=== PATIENT | female | born 1965 | race Caucasian/White ===

== ENCOUNTER → 2018-12-25 07:36 | Outpatient (CLI) | payer MEDICARE, MEDICAID | END | disposition home or self-care (01) | LOC: D.MRI 07:36 | PROVIDERS: ATTEND Anesthesiology | DX: M54.16 Radiculopathy, lumbar region (principal) ==

== ENCOUNTER 2019-12-11 22:45 | Inpatient (IN) | payer MEDICARE ==
[~2019-12-11] VITALS: Ht 167.6 cm; Wt 110.5 kg
[2019-12-11] MEDS ORDERED: LEXAPRO20 MG PO (22:50)
[2019-12-11] MEDS ORDERED: FUROSEMIDE40 MG PO (22:50)
[2019-12-11] MEDS ORDERED: PROTONIX20 MG PO (22:51)
[2019-12-11] MEDS ORDERED: PRAVACHOL20 MG PO (22:51)
[2019-12-11] MEDS ORDERED: NITROSTAT0.4 MG SL (22:51)
[2019-12-11] MEDS ORDERED: ALDACTONE100 MG PO (22:51)
[2019-12-11 23:00] LABS: BASOPHILS 0.6 % (0-2); EOSINOPHILS 3.2 % (0-7); HEMATOCRIT 29.7 % (36.0-48.0); HEMOGLOBIN 9.1 g/dL (12-16); LYMPHOCYTES 46.2 % (15-50); MCH 26.1 pg (26.0-34.0); MCHC 30.6 g/dL (31.0-37.0); MCV 85.3 fL (80.0-100.0); MEAN PLATELET VOLUME 10.3 fL (7.4-10.4); RBC 3.48 10x6/uL (4.00-5.40); RDW 18.8 % (11.5-14.5)
[2019-12-11 23:04] LABS: PLATELET COUNT 71 10x3/uL (130-400)
[2019-12-11 23:09] VITALS: BP 110/49
[2019-12-11 23:09] LABS: CALC OSMOLALITY 279 mosm/kg (275-300); CALCIUM 8.1 mg/dL (8.5-10.1); CHLORIDE - SERUM 109 mmol/L (98-107); GLUCOSE 118 mg/dL (74-106); POTASSIUM - SERUM 4.5 mmol/L (3.5-5.1); SODIUM 141 mmol/L (136-145); UREA NITROGEN 6 mg/dL (7-18); eGFR NON AFRICAN AMERICAN 61 mL/min (90-120)
--- NOTE | 2019-12-11 23:09 | NUR ---
RT HERE AT BEDSIDE OXYGEN INCREASED TO 4/L
[2019-12-11 23:11] LABS: APTT 46.3 SECONDS (22.8-39.4); INR 1.44 (0.85-1.17); PROTIME 17.4 SECONDS (11.6-15.0)
[2019-12-11 23:23] LABS: ALKALINE PHOSPHATASE 63 U/L (30-120); ALT (SGPT) 17 U/L (10-68); BILIRUBIN - TOTAL 0.83 mg/dL (0.2-1.3); CKMB 0.1 U/L (0.0-3.6); CREATINE KINASE 43 UL (21-215); PRO BNP 842 pg/mL (0-125); PROTEIN - SERUM 8.1 g/dL (6.4-8.2)
[2019-12-11 23:24] LABS: TROPONIN-I < 0.017 ng/mL (0.000-0.060)
[2019-12-11 23:34] LABS: PLATELET ESTIMATE DECREASED; PLATELET MORPHOLOGY GIANT PLTS PRESENT
[2019-12-11 23:37] LABS: D-DIMER-QUANTITATIVE 8.82 ug/mLFEU (0.20-0.54)
[2019-12-12] VITALS (8 sets, daily range): BP systolic 99–115; BP diastolic 47–67; Ht 167.6 cm; Wt 110.5 kg
[2019-12-12] MEDS ORDERED: NADOLOL20 MG (02:57)
[2019-12-12] MEDS ORDERED: VITAMIN D10000 UNI1 (02:59)
--- NOTE | 2019-12-12 03:00 | NUR ---
RECEIVED FROM ER, A&OX4, MEDS AND HISTORY COMPLETE, ON BIPAP, BED IS LOW, SRX2, CALL LIGHT IN REACH, WILL CONTINUE PLAN OF CARE
--- NOTE | 2019-12-12 07:00 | NUR ---
RECEIVED REPORT. ASSUMED CARE OF PATIENT. CALL LIGHT WITHIN REACH. PATIENT RESTING ON LEFT LATERAL SIDE WITH EYES CLOSED, BIPAP PATENT. PATIENT IS SINUS DULCE ON TELEMETRY, RATE 58. NO DISTRESS.
--- NOTE | 2019-12-12 09:30 | NUR ---
SITTING UP IN BED, BIPAP PATENT. FRESH ICE WATER PROVIDED. DENIES NEEDS. NO DISTRESS.
--- NOTE | 2019-12-12 11:20 | NUR ---
RESTING PEACEFULLY, EASILY AROUSED. PATIENT WONDERING WHEN SHE WILL GO HOME TODAY. THIS STOCK DRIVER HAS NO INFORMATION REGARDING DISCHARGE AT THIS TIME. NO DISTRESS. CALL LIGHT WITHIN REACH.
[2019-12-12 14:31] LABS: % SATURATION 14 % (15-55); IRON 37 ug/dl (35-150); TOTAL IRON BIND CAPACITY 264 ug/dl (260-445); UNSAT IRON BIND CAPACITY 227 ug/dl (150-375)
[2019-12-12 14:56] LABS: CREATINE KINASE 47 UL (21-215); FERRITIN 50 ng/mL (3-244)
[2019-12-12 15:04] LABS: TROPONIN-I < 0.017 ng/mL (0.000-0.060)
--- NOTE | 2019-12-12 15:30 | NUR ---
PATIENT RESTING IN BED. NO DISTRESS. PATIENT CONTINUES TO ASK ABOUT DISCHARGING TO HOME. WAITING FOR MD ROUNDS AT THIS TIME.
--- NOTE | 2019-12-12 17:47 | NUR ---
RESTING IN BED. NO DISTRESS. CALL LIGHT WITHIN REACH.
--- NOTE | 2019-12-12 19:26 | NUR ---
RECEIVED REPORT, WILL ASSUME CARE OF PT, UP IN RESTROOM, DENIES ANY NEEDS, WILL CONTINUE PLAN OF CARE
[2019-12-12 20:24] LABS: CREATINE KINASE 44 UL (21-215)
[2019-12-12 20:25] LABS: TROPONIN-I < 0.017 ng/mL (0.000-0.060)
[2019-12-13] VITALS: BP 110/56
--- NOTE | 2019-12-13 01:43 | NUR ---
I have reviewed this patient and I concur with the Shift Assessment completed by the Licensed Practical Nurse today this shift.
[2019-12-13 02:39] LABS: BASOPHILS 0.1 % (0-2); EOSINOPHILS 0 % (0-7); HEMATOCRIT 27.6 % (36.0-48.0); HEMOGLOBIN 8.7 g/dL (12-16); IMMATURE GRANULOCYTES 0.2 % (0-5); LYMPHOCYTES 11.1 % (15-50); MCH 26.3 pg (26.0-34.0); MCHC 31.5 g/dL (31.0-37.0); MCV 83.4 fL (80.0-100.0); MEAN PLATELET VOLUME 10.7 fL (7.4-10.4); MONOCYTES 2.5 % (2-11); NEUTROPHILS 86.1 % (40-80); PLATELET COUNT 80 10x3/uL (130-400); RBC 3.31 10x6/uL (4.00-5.40); RDW 18.6 % (11.5-14.5)
[2019-12-13 02:42] LABS: WBC 12.7 10x3/uL (4.8-10.8)
[2019-12-13 03:05] LABS: ALKALINE PHOSPHATASE 55 U/L (30-120); ALT (SGPT) 15 U/L (10-68); BILIRUBIN - TOTAL 0.83 mg/dL (0.2-1.3); CALC OSMOLALITY 270 mosm/kg (275-300); CALCIUM 7.7 mg/dL (8.5-10.1); CARBON DIOXIDE 24.2 mmol/L (21.0-32.0); CHLORIDE - SERUM 102 mmol/L (98-107); CKMB 0.3 U/L (0.0-3.6); CREATINE KINASE 37 UL (21-215); GLUCOSE 169 mg/dL (74-106); POTASSIUM - SERUM 4.1 mmol/L (3.5-5.1); PROTEIN - SERUM 7.8 g/dL (6.4-8.2); SODIUM 132 mmol/L (136-145); TROPONIN-I < 0.017 ng/mL (0.000-0.060); UREA NITROGEN 17 mg/dL (7-18); eGFR NON AFRICAN AMERICAN 61 mL/min (90-120)
[2019-12-13 04:00] VITALS: BP 110/56
--- NOTE | 2019-12-13 07:00 | NUR ---
RECEIVED REPORT. ASSUMED CARE OF PATIENT. CALL LIGHT WITHIN REACH. PATIENT RESTING IN BED WITH EYES CLOSED. RESP EVEN AND UNLABORED. NO BIPAP AT THIS TIME. NO DISTRESS. SINUS DULCE ON TELEMETRY.
[2019-12-13 10:56] VITALS: BP 106/60
--- NOTE | 2019-12-13 12:00 | NUR ---
RESTING IN BED. NO DISTRESS. CONSUMING NOON MEAL. CALL LIGHT WITHIN REACH.
[2019-12-13 14:31] VITALS: BP 108/50
--- NOTE | 2019-12-13 14:31 | NUR ---
ICE CREAM PROVIDED UPON REQUEST (MERY CANDELARIO). NO DISTRESS. LYING IN BED WITH ATTENTION TOWARD TELEVISION.
--- NOTE | 2019-12-13 15:30 | NUR ---
PATIENT OOB AMBULATING IN ROOM. NO DISTRESS. CALL LIGHT WITHIN REACH.
--- NOTE | 2019-12-13 17:26 | NUR ---
RESTING IN BED. NO DISTRESS. CALL LIGHT WITHIN REACH.
[2019-12-13 18:37] VITALS: BP 113/52
--- NOTE | 2019-12-13 19:15 | NUR ---
RECEIVED REPORT, WILL ASSUME CARE OF PT, PT IS IN SHOWER, WILL CONTINUE PLAN OF CARE
[2019-12-13 20:00] VITALS: BP 104/70
[2019-12-14] VITALS: BP 130/59
[2019-12-14 04:00] VITALS: BP 107/55
--- NOTE | 2019-12-14 04:00 | NUR ---
I have reviewed this patient and I concur with the Shift Assessment completed by the Licensed Practical Nurse today this shift.
[2019-12-14 06:24] LABS: ANION GAP 9.3 mmol/L (8-16); CALCIUM 7.8 mg/dL (8.5-10.1); CARBON DIOXIDE 23.9 mmol/L (21.0-32.0); POTASSIUM - SERUM 4.2 mmol/L (3.5-5.1)
[2019-12-14 07:22] LABS: HEMATOCRIT 27.7 % (36.0-48.0); HEMOGLOBIN 8.8 g/dL (12-16); MCH 26.1 pg (26.0-34.0); MCHC 31.8 g/dL (31.0-37.0); MCV 82.2 fL (80.0-100.0); RBC 3.37 10x6/uL (4.00-5.40); RDW 18.2 % (11.5-14.5); WBC 11.7 10x3/uL (4.8-10.8)
[2019-12-14 07:25] LABS: PLATELET COUNT 100 10x3/uL (130-400)
[2019-12-14 08:43] VITALS: BP 112/43
[2019-12-14 11:03] LABS: LYMPHOCYTES 10 % (15-50); MONOCYTES 6 % (2-11); NEUTROPHILS 84 % (40-80); PLATELET ESTIMATE DECREASED
[2019-12-14 11:04] LABS: ANISOCYTOSIS OCC
[2019-12-14 12:16] VITALS: BP 108/50
--- NOTE | 2019-12-14 12:53 | NUR ---
PT AMBULATING IN HALLS BY SELF WITHOUT OXYGEN. PULSE OX ON RETURN TO ROOM 97%. LEFT ON ROOM AIR FOR NOW.
[2019-12-14 15:35] LABS: BILIRUBIN NEGATIVE (NEGATIVE); GLUCOSE NEGATIVE (NEGATIVE); KETONE NEGATIVE (NEGATIVE); NITRITE NEGATIVE (NEGATIVE); UROBILINOGEN NORMAL (NORMAL)
[2019-12-14 15:39] LABS: BACTERIA FEW /hpf (NEGATIVE); EPITHELIAL CELLS 0-5 /hpf (0-5); RED CELLS - URINE OCC /hpf (0-5); WHITE CELLS - URINE 0-5 /hpf (NEGATIVE)
[2019-12-14 15:47] VITALS: BP 100/55
--- NOTE | 2019-12-14 19:33 | NUR ---
DENIES NEEDS AT THIS TIME BED LOW AND LOCKED CALL LIGHT IS WITH PT
--- NOTE | 2019-12-14 20:29 | NUR ---
PT UP AMBULATING AROUND UNIT AND TOLERATING WELL NEEDS SEEN TO
[2019-12-14 20:34] VITALS: BP 103/47
[2019-12-15 00:31] VITALS: BP 105/51
[2019-12-15 05:19] VITALS: BP 121/49
[2019-12-15 06:14] LABS: CARBON DIOXIDE 26.3 mmol/L (21.0-32.0); POTASSIUM - SERUM 4.3 mmol/L (3.5-5.1)
[2019-12-15 06:20] LABS: BASOPHILS 0.1 % (0-2); EOSINOPHILS 0 % (0-7); HEMATOCRIT 28.4 % (36.0-48.0); HEMOGLOBIN 8.9 g/dL (12-16); IMMATURE GRANULOCYTES 0.4 % (0-5); LYMPHOCYTES 13.8 % (15-50); MCH 25.8 pg (26.0-34.0); MCHC 31.3 g/dL (31.0-37.0); MCV 82.3 fL (80.0-100.0); MONOCYTES 3.5 % (2-11); NEUTROPHILS 82.2 % (40-80); PLATELET COUNT 91 10x3/uL (130-400); RBC 3.45 10x6/uL (4.00-5.40); RDW 18.5 % (11.5-14.5)
--- NOTE | 2019-12-15 07:00 | NUR ---
RECEIVED REPORT. ASSUMED CARE OF PATIENT. CALL LIGHT WITHIN REACH. PATIENT SITTING UP IN BED. DENIES NEEDS. PATIENT IS FOR POSSIBLE DISCHARGE TODAY. RESP EVEN AND UNLABORED ON ROOM AIR. NO DISTRESS.
[2019-12-15 10:15] VITALS: BP 112/59
--- NOTE | 2019-12-15 11:22 | NUR ---
PATIENT SITTING UP TO SIDE OF BED. PATIENT HAS BEEN AMBULATING IN HALLWAY FREQUENTLY THIS AM. NO DISTRESS.
[2019-12-15] MEDS ORDERED: PREDNISONE10 MG PO (13:13)
[2019-12-15 14:24] VITALS: BP 116/59
--- NOTE | 2019-12-15 14:52 | NUR ---
20 GAUGE IV REMOVED FROM LEFT FOREARM. CATHETER TIP IMTACT. NO BLEEDING FROM SITE. 2X2 GAUZE APPLIED AND SECURED WITH BANDAID. TOLERATED IV REMOVAL WELL. PATIENT IS DISCHARGING TO HOME.
--- NOTE | 2019-12-15 15:00 | NUR ---
DISCHARGE INSTRUCTIONS PROVIDED TO PATIENT. PATIENT VERBALIZED UNDERSTANDING OF ALL INSTRUCTIONS PROVIDED. PATIENT SISTER AT BEDSIDE DURING DISCHARGE INSTRUCTIONS BEING PROVIDED. PATIENT IS DISCHARGING TO HOME WITH HER SISTER.
--- NOTE | 2019-12-15 15:15 | NUR ---
PATIENT LEFT UNIT WITH WHEELCHAIR AT THIS TIME WITH ALL PERSONAL BELONGINGS. PATIENT DISCHARGED TO HOME IN NO DISTRESS. TELEMETRY UNIT RETURNED TO PROJECT SCHEDULER. PATIENT THANKED THIS HARVEST SUPERVISOR FOR BEING SUCH A GOOD NURSE TO HER.
--- NOTE | 2019-12-15 17:51 | MORECARE ---
CASE MANAGEMENT DISCHARGE SUMMARY PATIENT: GIANNA EMERSON UNIT: [id number] ADM DATE: 12/12/19 AGE: 53 : 65 SEX: F ROOM/BED: D.2134 AUTHOR: DANIEL MCKAY PHYSICIAN: REFERRING PHYSICIAN: SHAMEKA LAUREANO MD DATE OF SERVICE: 12/15/19 Discharge Plan Patient Name: GIANNA EMERSON Facility: [facility]:[place] : 1965 Planned Disposition: Home Anticipated Discharge Date: 12/15/19 Discharge Date: 12/15/2019 Expected LOS: 3 Initial Reviewer: [email or web address] Initial Review Date: 12/15/2019 Generated: 12/15/19 6:51 pm Coverage Notice Reviewer: [email or web address] - John Glass Notice Issued Date-Time: 12/15/2019 14:57 Notice Type: IM Discharge Notice Notice Delivered To: Patient Relationship to Patient: Denture Model Maker Name: Delivery Method: HAND - Hand Delivered Allison Days: Prior Verbal Notification: Recipient Understood Notice: Yes Recipient Signature: Yes Med Rec Note Co-signed by Attending: Coverage Notice Comment: Patient Name: GIANNA EMERSON Page [phone] at 1751 All edits/amendments must be made on the electronic document DICTATION DATE: 12/15/191750 CAREER COACH: JANAE 12/15/191750 RPT#: [id number] DC DATE:12/15/19 STATUS: DIS IN [facility] [address] [place] [address] END OF REPORT
--- NOTE | 2019-12-15 18:00 | MORECARE ---
CASE MANAGEMENT DISCHARGE SUMMARY PATIENT: GIANNA EMERSON UNIT: [id number] ADM DATE: 12/12/19 AGE: 53 : 65 SEX: F ROOM/BED: D.8292 AUTHOR: NELY,DOC PHYSICIAN: REFERRING PHYSICIAN: SHAMEKA LAUREANO MD DATE OF SERVICE: 12/15/19 Discharge Plan Patient Name: GIANNA EMERSON Facility: [facility]:[place] : 1965 Planned Disposition: Home Anticipated Discharge Date: 12/15/19 Discharge Date: 12/15/2019 Expected LOS: 3 Initial Reviewer: [email or web address] Initial Review Date: 12/15/2019 Generated: 12/15/19 6:59 pm Comments DCP- Discharge Planning Updated by [email or web address]: John Glass on 12/15/19 4:[address] Patient Name: GIANNA EMERSON Admission Status: ER Accout number: [id number] Admission Date: 12-12-2019 : 1965 Admission Diagnosis: Attending: SHAMEKA LAUREANO Current LOS: 3 Anticipated DC Date: 12-15-2019 Planned Disposition: Home Primary Insurance: [facility] [employer] Discharge Planning Comments: CM MET WITH PT IN ROOM TO DISCUSS DISCHARGE PLANNING AND NEEDS. PT REPORTS LIVING AT HOME INDEPENDENTLY AND ALONE. PT HAS CPAP FROM [facility]. PT HAS NO OUTSIDE SERVICES ASSISTING IN THE HOME. CM DISCUSSED AVAILABILITY OF HOME HEALTH, REHAB SERVICES AND MEDICAL EQUIPMENT. PT DENIES DISCHARGE NEEDS, REPORTS HER SISTER WILL PICK HER UP FOR DISCHARGE HOME. IMPORTANT MESSAGE FROM MEDICARE PROVIDED AND EXPLAINED. Sales Training Representative: John Glass DCPIA - Discharge Planning Initial Assessment Updated by [email or web address]: John Glass on 12/15/19 5:51 pm * Is the patient Alert and Oriented? Yes * How many steps to enter\exit or inside your home? * PCP DR. JAQUELIN PATEL, [facility] * Pharmacy [facility] IN [place] * Preadmission Environment Home Alone * ADLs Independent * Equipment CPAP * Other Equipment [facility]- PROVIDER * List name and contact numbers for known caregivers / representatives who currently or will assist patient after discharge: RAVEN EMERSON, SON, * Verbal permission to speak to the caregivers and representatives has been obtained from the patient. N/A * Community resources currently utilized None * Please name any agencies selected above. NONE * Additional services required to return to the preadmission environment? No * Can the patient safely return to the preadmission environment? Yes * Has this patient been hospitalized within the prior 30 days at any hospital? No Coverage Notice Reviewer: [id number] Higinio Glass Notice Issued Date-Time: 12/15/2019 14:57 Notice Type: IM Discharge Notice Notice Delivered To: Patient Relationship to Patient: Hand Molder Name: Delivery Method: HAND - Hand Delivered Allison Days: Prior Verbal Notification: Recipient Understood Notice: Yes Recipient Signature: Yes Med Rec Note Co-signed by Attending: Coverage Notice Comment: Last DP export: 12/15/19 4:51 pm Patient Name: GIANNA EMERSON Page [phone] at 1800 All edits/amendments must be made on the electronic document DICTATION DATE: 12/15/191758 PHOTOGRAPHIC PROCESSOR: JANAE 12/15/191758 RPT#: [id number] DC DATE:12/15/19 STATUS: DIS IN [address] [place] [address] END OF REPORT
--- NOTE | 2019-12-16 08:19 | CN ---
PATIENT NAME:GIANNA EMERSON MEDICAL RECORD: [id number] : [birth year] LOCATION:D. D.2134 ADMIT DATE: 12/12/19 ACCOUNT: [id number] CONSULTING PHYSICIAN: NADIYA JOAQUIN MD REFERRING PHYSICIAN: SHAMEKA LAUREANO MD DATE OF CONSULTATION: 12/13/2019 HISTORY OF PRESENT ILLNESS: A 53-year-old female with a known history of coronary artery disease, status post coronary bypass grafting. More recently, she [facility], had apparently a 70% lesion. She says she has been told in the past that she has congestive heart failure or the same token. She says her heart's strength has been reported as normal before, has a history of JOHNS, probable obstructive pulmonary disease, admitted with shortness of breath, brief chest pain that resolved spontaneously after a few seconds. She reports being treated for varices at [facility] with a prolonged stay at that time at their facility as well as a recent admission to [facility] with influenza. We are asked to see her concerning her cardiovascular status. PAST MEDICAL HISTORY: Includes: 1. History of JOHNS. 2. Coronary artery disease as described above. 3. Dyslipidemia. 4. Congestive heart failure. 5. Obstructive sleep apnea. MEDICATIONS: On admission include pravastatin 20 mg p.o. every day, Aldactone 100 mg p.o. daily, nadolol 10 mg p.o. daily, Lexapro 20 mg every day, Lasix 40 every day. SOCIAL HISTORY: Quit smoking recently. Nondrinker. No set exercise program. Able to take care of all her ADLs. ALLERGIES: INCLUDE WELLBUTRIN, CODEINE AND MORPHINE. REVIEW OF SYSTEMS: The patient reports easy bruising but reports no swollen glands. The patient reports no fever, no night sweats, no significant weight gain, no significant weight loss. No significant exercise tolerance. The patient reports no dry eyes, no irritation, no vision change. Patient reports no difficulty hearing and no ear pain. Patient reports no frequent nose bleeds or nose and sinus problems. Patient reports on arm pain on exertion. No shortness of breath while lying down. No history of heart murmur. Patient reports no cough, no wheezing or coughing up blood. Patient reports no abdominal pain, no vomiting. Normal appetite. No diarrhea and not vomiting blood. No nausea and no constipation. Patient reports no incontinence. No difficulty urinating. No hematuria. No increased frequency. Patient reports no muscle aches. No weakness, no arthralgias, no back pain. No swelling of the extremities. Patient reports no abnormal mole, no jaundice, no rashes. Reports no loss of consciousness. No weakness and no numbness. No seizures, dizziness, or headaches. The patient reports no depression, no sleep disturbance, feeling safe in a relationship and no alcohol abuse. Patient reports on fatigue. Reports no runny nose or sinus pressure. No itching, no hives, and no frequent sneezing. PHYSICAL EXAMINATION: CONSULT REPORT [id number] IDANIAGIANNA AMADOR GENERAL: Well-developed, well-nourished, appears older than stated age. VITAL SIGNS: Blood pressure 106/60, pulse 64 and regular. HEENT: Normocephalic, atraumatic. NECK: No bruits noted. HEART: Regular. No gallop is noted. There is a soft II/ systolic ejection murmur. LUNGS: Actually fairly good air excursion. ABDOMEN: Soft, nontender. EXTREMITIES: Pulses 2+. There is trace edema. IMPRESSION: Known history of coronary artery disease, recent symptomology does not sound ischemic in origin. We will check echocardiographic study to assess LV function at this point. Agree with current management. Further recommendations based on clinical course. TRANSINT:[id number] Voice Confirmation ID: [id number] DOCUMENT ID: [id number] NADIYA JOAQUIN MD at 0819 CC: [id number] DICTATION DATE: 12/13/19 1128 PAN DUMPER: 12/13/19 2303 DIS IN 12/15/19 [facility] [address] [place] [id number]
--- NOTE | 2019-12-16 08:19 | EC ---
PATIENT:GIANNA EMERSON DATE OF SERVICE: 12/12/19 SEX: F MEDICAL RECORD: [id number] DATE OF : 65 LOCATION:D.M2 D.213 AGE OF PATIENT: 53 ADMISSION DATE: 12/12/19 REFERRING PHYSICIAN: INTERPRETING PHYSICIAN: NADIYA JOAQUIN MD ECHOCARDIOGRAM REPORT ECHO CHARGES 4 ECHO COMPLETE Date: 12/13/19 CLINICAL DIAGNOSIS: CHF HX CAD/CABG/AFIB ECHOCARDIOGRAPHIC MEASUREMENTS (adult normal given) AC root (d.<3.7cm) 3.8 cm LV Septum d (<1.2 cm> 1.7 cm Valve Excursion 1.3 cm LV Septum (systole) 1.8 cm Left Atria (s.<4.0cm> 4.0 cm LVPW d(<1.2cm) 1.6 cm RV (d.<2.3cm) 4.8 cm LVPW (sytole) 2.0 cm LV diastole(<5.6CM) 6.2 cm MV E-F(>70mm/sec) cm LV systole 4.5 cm LVOT Diameter 2.4 cm MV exc.(>10mm) 1.1 cm Est.ejection fraction (50-75%) % DOPPLER: LVIT cm/sec A 36.0 cm/sec E 113.0 cm/sec LA cm/sec RVSP 37 mmHg LVOT 90 cm/sec AOP1/2T m/s Asc. Ao 153 cm/sec RVOT 67 cm/sec RA cm/sec PA 116 cm/sec AV Gradient Peak 9.41 mmHg AV Mean 5.73 mmHg AV Area 2.3 cm MV Gradient Peak 9.88 mmHg MV Mean 2.71 mmHg MV Area cm COMMENTS: Quality Assurance Engineer: 2 LYNDSEY VALENCIA Button Tufter: 3 Dr. Montero TAPE# [PACS Pericardial Effusion N DATE OF SERVICE: Adequate 2D, color flow and spectral Doppler, M-Mode. LVH is present. LV internal dimensions are normal. Wall motion is normal. EF is greater than or equal to 55%. Aortic valve is tricuspid. No evidence of stenosis by Doppler interrogation. Left atrium is dilated at 4.8 cm. Mitral valve shows no prolapse. Mild MR. Right-sided chambers are grossly normal. Mild TR. ECHOCARDIOGRAM REPORT [id number] GIANNA EMERSON TRANSINT:[id number] Voice Confirmation ID: [id number] DOCUMENT ID: [id number] NADIYA JOAQUIN MD at 0819 CC: [id number] DICTATION DATE: 12/14/19922 MEDICAL INSURANCE CLAIMS PROCESSOR: 12/14/19 1036 DIS IN 12/15/19 [place] [id number] [place] [id number]
== END 2019-12-15 15:15 | disposition home or self-care (01) | DRG 193 ==
LOC: D.ER 22:45 → D.M2 12-12 01:07
PROVIDERS: Family Medicine; ADMIT Internal Medicine Nephrology; ATTEND Internal Medicine Nephrology
DX: J18.9 Pneumonia, unspecified organism (principal); J96.01 Acute respiratory failure with hypoxia; J44.1 Chronic obstructive pulmonary disease with (acute) exacerbation; J44.0 Chronic obstructive pulmonary disease with (acute) lower respiratory infection; R18.8 Other ascites; N17.9 Acute kidney failure, unspecified; I50.9 Heart failure, unspecified; I11.0 Hypertensive heart disease with heart failure; K74.60 Unspecified cirrhosis of liver; I25.10 Atherosclerotic heart disease of native coronary artery without angina pectoris; D64.9 Anemia, unspecified; D69.6 Thrombocytopenia, unspecified; I48.91 Unspecified atrial fibrillation; J20.9 Acute bronchitis, unspecified

== ENCOUNTER 2020-03-01 20:49 | Emergency (ER) | payer MEDICARE ==
[~2020-03-01] VITALS: Ht 167.6 cm; Wt 114.1 kg
[~2020-03-01 20:49] MED LIST: ALDACTONE100 MG PO; FUROSEMIDE40 MG PO; LEXAPRO20 MG PO; NADOLOL20 MG; NITROSTAT0.4 MG SL; PRAVACHOL20 MG PO; PREDNISONE10 MG PO; PROTONIX20 MG PO; VITAMIN D10000 UNI1
[2020-03-01 20:57] VITALS: Ht 167.6 cm; Wt 114.1 kg
[2020-03-01] MEDS ORDERED: PROAIR HFA8.5 G1 INH (21:00)
[2020-03-01] MEDS ORDERED: LIPITOR40 MG PO (21:00)
[2020-03-01 22:18] LABS: BASOPHILS 0.2 % (0-2); EOSINOPHILS 1.7 % (0-7); HEMATOCRIT 33.7 % (36.0-48.0); HEMOGLOBIN 10.2 g/dL (12-16); LYMPHOCYTES 25.7 % (15-50); MCH 24.4 pg (26.0-34.0); MCHC 30.3 g/dL (31.0-37.0); MCV 80.6 fL (80.0-100.0); MONOCYTES 16.6 % (2-11); NEUTROPHILS 55.8 % (40-80); PLATELET COUNT 87 10x3/uL (130-400); RBC 4.18 10x6/uL (4.00-5.40); RDW 17.5 % (11.5-14.5); WBC 4.6 10x3/uL (4.8-10.8)
[2020-03-01 22:29] LABS: APTT 35.8 SECONDS (22.8-39.4); INR 1.41 (0.85-1.17); PROTIME 17.2 SECONDS (11.6-15.0)
[2020-03-01 22:31] LABS: CALC OSMOLALITY 271 mosm/kg (275-300); CALCIUM 8.6 mg/dL (8.5-10.1); CARBON DIOXIDE 28.8 mmol/L (21.0-32.0); CHLORIDE - SERUM 104 mmol/L (98-107); GLUCOSE 152 mg/dL (74-106); SODIUM 135 mmol/L (136-145); UREA NITROGEN 9 mg/dL (7-18); eGFR NON AFRICAN AMERICAN 61 mL/min (90-120)
[2020-03-01 22:47] LABS: ALBUMIN 2.7 g/dL (3.4-5.0); ALKALINE PHOSPHATASE 66 U/L (30-120); ALT (SGPT) 22 U/L (10-68); BILIRUBIN - TOTAL 0.67 mg/dL (0.2-1.3); CKMB 0.3 U/L (0.0-3.6); CREATINE KINASE 31 UL (21-215); PRO BNP 384 pg/mL (0-125); PROTEIN - SERUM 8.4 g/dL (6.4-8.2)
[2020-03-01 22:51] LABS: TROPONIN-I < 0.017 ng/mL (0.000-0.060)
[2020-03-01 22:54] LABS: PLATELET ESTIMATE DECREASED
[2020-03-02 00:18] VITALS: BP 130/27
== END 2020-03-02 00:20 | disposition home or self-care (01) ==
LOC: D.ER 20:49
PROVIDERS: Family Medicine
DX: J44.9 Chronic obstructive pulmonary disease, unspecified (principal); Z86.73 Personal history of transient ischemic attack (TIA), and cerebral infarction without residual deficits; K21.9 Gastro-esophageal reflux disease without esophagitis; R06.02 Shortness of breath